=== PATIENT | female | born 1950 | race Caucasian/White ===

== ENCOUNTER 2022-08-25 16:30 | Emergency (ER) | payer MEDICARE, SELFPAY ==
[2022-08-25 16:40] VITALS: BP 141/71; PULSE 87; RESP 20; TEMP 36.2; O2SAT 97
--- NOTE | 2022-08-25 16:51 | ED.SKABFB ---
HPI - Skin/Abscess/Foreign Bdy General Chief complaint: Skin/Abscess/Foreign Body Stated complaint: Rash History of Present Illness HPI narrative: PATIENT PRESENTS WITH INSECT BITES ON BOTH HER ARMS CHEST AND BACK. Related Data Home Medications Medication Instructions Recorded Confirmed atorvastatin 20 mg tablet mg 08/25/22 azathioprine 50 mg tablet mg 08/25/22 levothyroxine 175 mcg tablet mcg 08/25/22 oxycodone-acetaminophen 10 mg-325 tablet 08/25/22 mg tablet valsartan 320 mg tablet mg 08/25/22 zolpidem 10 mg tablet mg 08/25/22 Allergies Allergy/AdvReac Type Severity Reaction Status Date / Time amoxicillin Allergy Unknown Rash Unverified 11/11/15 10:49 clavulanic acid Allergy Unknown Rash Unverified 11/11/15 10:49 meperidine Allergy Unknown Unknown Unverified 08/25/22 16:41 Sulfa (Sulfonamide Allergy Unknown Unknown Unverified 08/25/22 16:41 Antibiotics) hydroxyzine [From Vistaril] Allergy Rash Verified 08/25/22 16:41 Review of Systems Review of Systems: CONSTITUTIONAL: DENIES FEVER, CHILLS, OR SWEATS. EYES: DENIES VISUAL CHANGES, REDNESS, OR DISCHARGE. ENT: DENIES RHINORRHEA, CONGESTION, SORE THROAT, OR OTALGIA. CARDIOVASCULAR: DENIES CHEST PAIN, PALPITATIONS, OR EDEMA. RESPIRATORY: DENIES COUGH OR DYSPNEA. GASTROINTESTINAL: DENIES ABDOMINAL PAIN, NAUSEA, VOMITING, OR DIARRHEA. GENITOURINARY: DENIES DYSURIA OR HEMATURIA. SKIN: DENIES RASH OR ITCHING. MUSCULOSKELETAL: DENIES BACK PAIN, JOINT PAIN, OR MYALGIA. NEUROLOGIC: DENIES HEADACHE, NUMBNESS, OR WEAKNESS. PSYCHIATRIC: DENIES ANXIETY OR DEPRESSION. PMFSH Comments AT TIME OF SIGNATURE, AGREE WITH NURSING PAST MEDICAL, SURGICAL, SOCIAL AND FAMILY HISTORY. THERE IS NO RELEVANT FAMILY HISTORY PERTINENT TO THE PRESENTING COMPLAINT Exam Narrative: GENERAL: WELL-APPEARING, WELL-NOURISHED, AND IN NO ACUTE DISTRESS. HEAD: NORMOCEPHALIC, ATRAUMATIC. EYES: PERRLA AND EOMI. ENT: NARES CLEAR, NO RHINORRHEA OR EPISTAXIS. MUCOUS MEMBRANES MOIST. NECK: SUPPLE. CHEST: CLEAR TO AUSCULTATION. NO RESPIRATORY DISTRESS. HEART: REGULAR RATE AND RHYTHM. NO MURMUR HEARD. NORMAL PERIPHERAL PULSES. ABDOMEN: SOFT, NONTENDER, NONDISTENDED, NORMAL ACTIVE BOWEL SOUNDS. EXTREMITIES: NORMAL RANGE OF MOTION. NO EDEMA. SKIN: WARM, DRY, NO RASH. VARIOUS SIZES AND SHAPES OF INSECT BITES TO BOTH ARMS BACK ABDOMEN AND RIGHT CHEEK NO CONCERN FOR CELLULITIS NEURO: NO FOCAL DEFICITS. ALERT AND ORIENTED X3. DENEEN COMA SCALE EYE OPENING: SPONTANEOUS 4 DENEEN COMA SCALE MOTOR: OBEYS COMMANDS 6 DENEEN COMA SCALE VERBAL: ORIENTED 5 DENEEN COMA SCALE TOTAL 15 Course Course Level of Care: Express Care Visit Vital Signs Vital signs: Vital Signs Temperature 36.2 C L 08/25/22 16:40 Pulse Rate 87 08/25/22 16:40 Respiratory Rate 20 08/25/22 16:40 Blood Pressure 141/71 H 08/25/22 16:40 Pulse Oximetry 97 08/25/22 16:40 Oxygen Delivery Room Air 08/25/22 16:40 Temperature 36.2 C L 08/25/22 16:40 Pulse Rate 87 08/25/22 16:40 Respiratory Rate 20 08/25/22 16:40 Blood Pressure 141/71 H 08/25/22 16:40 Pulse Oximetry 97 08/25/22 16:40 Oxygen Delivery Room Air 08/25/22 16:40 MY BLOOD PRESSURE PLEASE GLENN SCHEDULE A FOLLOWUP VISIT WITH YOUR PERSONAL PHYSICIAN FOR FURTHER EVALUATION AND TREATMENT. INCLUDING RECHECK AND DISCUSSION OF YOUR BLOOD PRESSURE. IF YOUR SYMPTOMS PERSIST, CHANGE OR WORSEN SIGNIFICANTLY BEFORE YOU CAN CONTACT YOUR PERSONAL PHYSICIAN THEN PLEASE, WITHOUT DELAY, GO TO THE EMERGENCY DEPARTMENT FOR FURTHER EVALUATION Discharge Plan Discharge Clinical Impression: Insect bites Patient Disposition: Home, Self-Care Condition: Stable Instructions: Insect Bite or Sting (ED) Additional Instructions: MEDICATION PRESCRIBED FOLLOW UP WITH PCP NEEDED MAY TAKE CLARITIN OR ZYRTEC FOR ITCHING IF ANY NEW OR WORSENING OF SYMPTOMS GO TO ER IMMEDIATELY Prescriptions: New methylprednisolone [Medrol (Pablo)]
== END 2022-08-25 17:00 | disposition home or self-care (01) ==
PROVIDERS: Emergency Provider Nurse Practitioner Family; PCP Internal Medicine Endocrinology, Diabetes & Metabolism
DX: S40.862A Insect bite (nonvenomous) of left upper arm, initial encounter (principal); S40.861A Insect bite (nonvenomous) of right upper arm, initial encounter; S20.469A Insect bite (nonvenomous) of unspecified back wall of thorax, initial encounter; S30.861A Insect bite (nonvenomous) of abdominal wall, initial encounter; W57.XXXA Bitten or stung by nonvenomous insect and other nonvenomous arthropods, initial encounter; E78.00 Pure hypercholesterolemia, unspecified; I10 Essential (primary) hypertension; M32.9 Systemic lupus erythematosus, unspecified
CPT/HCPCS: 99203; G0463